=== PATIENT | female | born 1945 | race Caucasian/White ===

== ENCOUNTER 2023-01-11 12:51 | Outpatient (CLI) | payer MEDICARE, OTHER | END 2023-01-11 12:52 | disposition home or self-care (01) | LOC: CSHMRI 12:51 | PROVIDERS: ATTEND Psychiatry & Neurology Neurology | DX: G30.9 Alzheimer's disease, unspecified (principal); I67.9 Cerebrovascular disease, unspecified; I63.9 Cerebral infarction, unspecified | CPT/HCPCS: 70551 ==

== ENCOUNTER 2023-01-11 14:20 | Observation (INO) | payer MEDICARE, OTHER ==
[2023-01-11 16:11] LABS: #Eosinphils 0.2 10x3/uL (0.0-0.5); #Monocytes 0.6 10x3/uL (0.0-1.1); #Neutrophils 4.6 10x3/uL (1.5-8.4); %Basophils 0.4 % (0.0-2.0); %Eosinophils 2.4 % (0.0-6.0); %Lymphocytes 24.2 % (18.0-47.0); %Monocytes 8.9 % (0.0-10.0); %Neutrophils 63.8 % (40.0-75.0); Hemoglobin 13.4 g/dL (12.0-15.5); Mean Corpuscular HGB CONC 33.1 g/dL (32.0-36.0); Mean Corpuscular Volume 93.8 fl (81.6-98.3); Mean Platelet Volume 10.1 fl (7.4-10.4); Platelet Count 246 10x3/uL (150-450); Red Blood Cell (RBC) Count 4.32 10x6/uL (3.90-5.03); White Blood Cell (WBC) Count 7.2 10x3/uL (3.5-10.5)
[2023-01-11 16:25] LABS: ALT (SGPT) 12 U/L (8-55); AST (SGOT) 15 U/L (5-34); Albumin 3.9 g/dL (3.4-4.8); Alkaline Phosphatase 79 U/L (40-110); Anion Gap 16 mmol/L (10-20); BUN (Urea Nitrogen) 16 mg/dL (9.8-20.1); Bilirubin, Total 0.2 mg/dL (0.2-1.2); Calc. Creatinine Clearance 0 mL/min (70-130); Calcium 8.8 mg/dL (7.8-10.44); Carbon Dioxide 22 mmol/L (23-31); Chloride 110 mmol/L (98-107); Estimated GFR 49; Globulin 2.4 g/dL (2.4-3.5); Glucose 99 mg/dL (83-110); Potassium 4.6 mmol/L (3.5-5.1); Protein, Total 6.3 g/dL (5.8-8.1); Sodium 143 mmol/L (136-145)
[2023-01-11 16:26] LABS: PTT 26.7 sec (22.0-33.0); Prothrombin Time 10.4 sec (9.5-12.1)
[2023-01-11] MEDS ORDERED: Ondansetron ODT 4 MG TAB PO PRN (17:11)
[2023-01-11] MEDS ORDERED: Ondansetron PF 4 MG/2 ML Vial IVP PRN (17:11)
[2023-01-11] MEDS ORDERED: Acetaminophen 325 MG TAB PO PRN (17:11)
[2023-01-11 19:08] LABS: Free T4 (Free Thyroxine) 0.83 ng/dL (0.70-1.48)
[2023-01-11 19:54] LABS: Troponin I Less than 0.010 ng/mL (< 0.028)
[2023-01-11 20:22] LABS: Hemoglobin A1c 5.4 % (4.0-6.0)
[2023-01-11] MEDS ORDERED: Atorvastatin Calcium 40 MG TAB ONE (21:51)
[2023-01-11] MEDS ORDERED: Atorvastatin Calcium 40 MG TAB PO SCH (22:45)
[2023-01-11 22:49] LABS: Troponin I Less than 0.010 ng/mL (< 0.028)
[2023-01-11 23:44] VITALS: BMI 26.4
[2023-01-12 04:03] LABS: #Eosinphils 0.2 10x3/uL (0.0-0.5); #Monocytes 0.7 10x3/uL (0.0-1.1); #Neutrophils 3.9 10x3/uL (1.5-8.4); %Basophils 0.6 % (0.0-2.0); %Lymphocytes 27.7 % (18.0-47.0); %Neutrophils 57.6 % (40.0-75.0); Mean Corpuscular HGB CONC 33.2 g/dL (32.0-36.0); Mean Corpuscular Hemoglobin 30.9 pg (27.0-33.0); Mean Corpuscular Volume 93.1 fl (81.6-98.3); Mean Platelet Volume 10.1 fl (7.4-10.4); Platelet Count 236 10x3/uL (150-450); Red Blood Cell (RBC) Count 4.21 10x6/uL (3.90-5.03); White Blood Cell (WBC) Count 6.7 10x3/uL (3.5-10.5)
[2023-01-12 04:19] LABS: Anion Gap 13 mmol/L (10-20); BUN (Urea Nitrogen) 18 mg/dL (9.8-20.1); Calc. Creatinine Clearance 53 mL/min (70-130); Calcium 8.7 mg/dL (7.8-10.44); Carbon Dioxide 21 mmol/L (23-31); Chloride 113 mmol/L (98-107); Cholesterol 185 mg/dl (< 200 Desired); Estimated GFR 56; Glucose 106 mg/dL (83-110); HDL Cholesterol 37 mg/dL (>60 Neg Risk); LDL Cholesterol, Calculated 123 mg/dL; Potassium 4.3 mmol/L (3.5-5.1); Sodium 143 mmol/L (136-145); Triglycerides 127 mg/dL (Less than 150)
[2023-01-12] MEDS ORDERED: Aspirin 81 mg Enteric Coated Tablet PO SCH (09:00)
[2023-01-12] MEDS ORDERED: Aspirin 81 mg Enteric Coated Tablet ONE (09:16)
[2023-01-12 11:09] VITALS: BP 151/46
[2023-01-12] MEDS ORDERED: Atorvastatin Calcium 40 MG TAB PO SCH (21:00)
== END 2023-01-12 10:20 | disposition left against medical advice (07) ==
LOC: CSHERS 14:20 → INTOOBSV 21:25 → CSHERHOLD 21:25
PROVIDERS: ADMIT Student in an Organized Health Care Education/Training Program; ATTEND Nurse Practitioner Family
DX: I63.541 Cerebral infarction due to unspecified occlusion or stenosis of right cerebellar artery (principal); F03.90 Unspecified dementia, unspecified severity, without behavioral disturbance, psychotic disturbance, mood disturbance, and anxiety; G30.9 Alzheimer's disease, unspecified; I67.9 Cerebrovascular disease, unspecified
CPT/HCPCS: 70551; 80048; 80061; 83036; 84439; 84481; 84484 ×2; 85025; 85610; 85730; 93005; 93880; 99285; G0378 ×2; 36415; 80053; 84443